=== PATIENT | male | born 1995 | race Two or more races ===

== ENCOUNTER 2023-03-10 12:18 | Emergency (ER) | payer OTHER ==
[2023-03-10 12:25] VITALS: BP 136/68
[2023-03-10] MEDS ORDERED: KETOROLAC 30 MG/ML VIAL IM STA (12:36)
--- NOTE | 2023-03-10 12:39 | ED Physician Documentation ---
History of Present Illness - Stated complaint Stated Complaint: BACK PX,LEG PX - Chief complaint Chief Complaint: Back Pain - Additonal information Additional information: 27-year-old male, active duty [employer], presents emergency department for evaluation of low back pain. He reports that he was using a jackhammer at work. This is common for him. He does not remember any particular inciting event. However about an hour after finishing his shift he began noticing pain in his back when he was sitting in the truck. The pain radiates to both legs. He is taken Advil back pain without relief. He is also tried IcyHot and a lidocaine patch without resolution of symptoms. Denies any previous history of back pain. No history of injection drug use. No saddle anesthesia, loss of bowel or bladder function. No fevers. Denies any falls or trauma. Review of Systems Constitutional: denies: Fever, Chills Cardiac: reports: Reviewed and negative Respiratory: reports: Reviewed and negative Musculoskeletal: reports: Back pain Neurologic: reports: Reviewed and negative Psychiatric: reports: Reviewed and negative PD PAST MEDICAL HISTORY - Present Medications Home Medications: Ambulatory Orders Medication Instructions Recorded Confirmed Cyclobenzaprine [Flexeril] 10 mg PO TID PRN #20 tablet 03/10/23 Ibuprofen [Motrin] 600 mg PO Q8H PRN #30 tab 03/10/23 - Allergies Allergies/Adverse Reactions: Allergies Allergy/AdvReac Type Severity Reaction Status Date / Time No Known Drug Allergies Allergy Verified 03/10/23 12:25 PD ED PE NORMAL - General General: Alert and oriented X 3, No acute distress - Cardiac Cardiac: RRR, No murmur - Respiratory Respiratory: No respiratory distress, Clear bilaterally - Abdomen Abdomen: Normal bowel sounds, Soft - Back Back: No spinal TTP, Other (Mild tenderness elicited bilateral lower paraspinous muscles and lumbar region. Reduced forward flexion range of motion. Motor strength 5 of 5 bilateral lower extremities. 2+ patellar reflexes. Negative straight leg bilaterally. 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 intact Eye Opening: Spontaneous Motor: Obeys Commands Verbal: Oriented GCS Score: 15 Results - Vitals Vitals: Vital Signs - 24 hr 03/10/23 12:22 Temperature 36.1 C L Heart Rate 68 Respiratory 16 Rate Blood Pressure 136/68 H O2 Saturation 97 Oxygen O2 Source Room air PD Medical Decision Making - ED course Complexity details: re-evaluated patient, considered differential, d/w patient ED course: Very well-appearing 27-year-old male who is active duty [employer] presents emergency department for evaluation of acute low back pain that began yesterday after using a jackhammer and doing heavy lifting. No particular inciting event though he noticed pain in the low back after he had sat in his car after work for about an hour. He has no red flags such as saddle anesthesia or loss of bowel or bladder function. On exam he has some mild tenderness of bilateral lower muscles. It was negative straight leg and as such I doubt a sciatica. Given lack of falls trauma or red flags I deferred advanced imaging as I am not clinically suspicious for an occult fracture or spinal epidural abscess. I discussed with him the routine conservative care measures for low back pain to include NSAID plus muscle relaxer. He will follow closely with [facility]. Otherwise usual emergent return precautions for worsening symptoms was discussed. Departure - Departure Disposition: 01 Home, Self Care Clinical Impression: Low back pain Qualifiers: Chronicity: acute Back pain laterality: bilateral Sciatica presence: without sciatica Qualified Code(s): M54.50 - Low back pain, unspecified Condition: Stable Record reviewed to determine appropriate education?: Yes Instructions: ED Spasm Back No Trauma Prescriptions: Cyclobenzaprine [Flexeril] 10 mg PO TID PRN #20 tablet PRN Reason: Spasms Ibuprofen [Motrin] 600 mg PO Q8H PRN #30 tab PRN Reason: Pain Comments: As discussed at the bedside you do have some strain of the muscles of your lower back. Most cases of low back sprain and strain like this will begin to get better after a week or 2. We typically recommend conservative treatment with ibuprofen, 600 mg taken with food 2-3 times a day. You can also alternate with 500 mg of Tylenol for added pain relief. If you find that using the muscle relaxers or the IcyHot is beneficial you can continue to use them. I have written for a muscle relaxer, Flexeril, that can be used to help with pain and spasm. Use this cautiously especially the first few doses as it may make you drowsy, dizzy and unsafe to drive. Please follow-up with [facility] tomorrow to discuss this ED visit. You may benefit from referral to physical therapy if you find that your back pain is not improving over the next week or so. Return to the ER if you develop any numbness in your genital area, lose control of your bowel or bladder function or have sudden weakness in your leg.
== END 2023-03-10 13:02 | disposition home or self-care (01) ==
LOC: ED 12:18
DX: M54.50 Low back pain, unspecified (principal)
CPT/HCPCS: 96372; 99283